=== PATIENT | male | born 2005 | race Caucasian/White ===

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

== ENCOUNTER → 2025-07-19 | Outpatient (REF) | payer OTHER | LOC: M SFHCPLAZ 10:52 | PROVIDERS: ATTEND Family Medicine | DX: Z53.9 Procedure and treatment not carried out, unspecified reason (principal) ==